=== PATIENT | female | born 1940 | race Two or more races ===

== ENCOUNTER 2024-04-27 13:59 | Outpatient (RCR) | payer OTHER, SELFPAY | END 2024-08-17 15:15 | disposition skilled nursing facility (03) | LOC: HO.WCC 13:59 | PROVIDERS: Visit Provider Physician Assistant | DX: L89.610 Pressure ulcer of right heel, unstageable (principal); L89.312 Pressure ulcer of right buttock, stage 2; F03.918 Unspecified dementia, unspecified severity, with other behavioral disturbance; I73.9 Peripheral vascular disease, unspecified; I96 Gangrene, not elsewhere classified; R54 Age-related physical debility | CPT/HCPCS: 97597; 99203 ==